=== PATIENT | female | born 1930 | race African-American/Black ===

== ENCOUNTER 2018-02-18 08:11 | Emergency (ER) | payer OTHER ==
[~2018-02-18] VITALS: Ht 152.4 cm; Wt 60.8 kg
[~2018-02-18 08:11] MED LIST: ASA81 MG; COZAAR25 MG; DAFLONEX-XL TA1 EACH; DICLOFENAC SODI50 MG PO; IBANDRONATE3 MG/3 ML; LEVAQUIN500 MG; MEDROLPACK PO; NORVASC2.5 M1; ORPH100T PO; OSEL75CA; TESSALON PERLE100 MG PO
[2018-02-18] MEDS ORDERED: CALCIUM600 MG (08:33)
[2018-02-18] MEDS ORDERED: DAFLONEX-XL TA1 EACH (08:33)
[2018-02-18] MEDS ORDERED: FOLIC ACID1 MG (08:33)
[2018-02-18] MEDS ORDERED: TRAMADOL HCL50 MG (08:34)
[2018-02-18] MEDS ORDERED: NEURIN (08:34)
[2018-02-18] MEDS ORDERED: MOTRIN IB200 MG (08:35)
== END 2018-02-18 09:06 | disposition home or self-care (01) ==
LOC: ER 08:11
DX: M79.602 Pain in left arm (principal)